=== PATIENT | female | born 1950 | race Caucasian/White ===

== ENCOUNTER 2019-12-02 08:48 | Emergency (ER) | payer MEDICARE, SELFPAY ==
--- NOTE | ~2019-12-02 | XR_ITS ---
XR wrist LT min 3V DATE: 12/02/2019 09:19 INDICATION: Fall. Pain and swelling. TECHNIQUE: 4 views COMPARISON: None FINDINGS: There is a virtually nondisplaced comminuted intra-articular fracture of the distal radius. Normal alignment at the radiocarpal joint. Osteopenia. 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 IMPRESSION: Virtually nondisplaced comminuted intra-articular fracture of the distal radius Reviewed, dictated and finalized at location A. IMPRESSION: Virtually nondisplaced comminuted intra-articular fracture of the d istal radius
[2019-12-02 08:51] VITALS: BP 145/72; PULSE 83; RESP 18; TEMP 36.2; O2SAT 97
--- NOTE | 2019-12-02 09:46 | ED.UPPEXIN ---
HPI - Extremity Injury (Upper) General Chief Complaint: Extremity Injury, Upper Stated Complaint: left wrist pain s/p fall Time Seen by Provider: 12/02/19 09:45 History of Present Illness HPI narrative: Patient presents via personal car, for left wrist pain. She was returning a neighbor's dog when she fell forward on the asphalt. She gauges her pain 6 out of 10, worse with movement. She has had no previous fractures. Her bone density is low and she takes the pill that you swallow once a week. She also takes vitamin D for low vitamin D levels. She has not been sick in the last couple weeks. Her car was packed she is going to see her mother for the weekend. She does not have an orthopedic doctor and will be referred to Dr. Tafoya. complaint: injury to: left Onset (ago): hour(s) Other Extremity Injury: Left: wrist Other injuries: none Handedness: right Place: home Severity: moderate Severity scale (1-10): 6 Relieving factors: cold therapy Exacerbating factors: movement of extremity Context: fall Associated symptoms: denies other symptoms Treatments prior to arrival: other Related Data Home Medications Medication Instructions Recorded Confirmed lisinopril 40 mg PO DAILY 12/02/19 Allergies Allergy/AdvReac Type Severity Reaction Status Date / Time No Known Allergies Allergy Verified 12/02/19 08:54 Review of Systems Review of Systems: Narrative: CONSTITUTIONAL: Denies fever, chills, or sweats. EYES: Denies visual changes, redness, or discharge. ENT: Denies rhinorrhea, congestion, sore throat, or otalgia. CARDIOVASCULAR: Denies chest pain, palpitations, or edema. RESPIRATORY: Denies cough or dyspnea. GASTROINTESTINAL: Denies abdominal pain, nausea, vomiting, or diarrhea. GENITOURINARY: Denies dysuria or hematuria. SKIN: Denies rash or itching. MUSCULOSKELETAL: Denies back pain, or myalgia. NEUROLOGIC: Denies headache, numbness, or weakness. PSYCHIATRIC: Denies anxiety or depression. All systems reviewed & are unremarkable except as noted in HPI and below PMFSH Surgical History Surgical History (Updated 12/02/19 @ 09:54 by Malgorzata Gonzalez MD) Central teeth extracted Social History Social History (Updated 12/02/19 @ 09:54 by Malgorzata Gonzalez MD) Smoking status: Never smoker Alcohol intake: never Substance use: never Exam Narrative: Exam Narrative: GENERAL: Well-appearing, well-nourished, and in no acute distress. HEAD: Normocephalic, atraumatic. EYES: PERRLA and EOMI. ENT: Nares clear, no rhinorrhea or epistaxis. Mucous membranes moist. NECK: Supple. CHEST: Clear to auscultation. No respiratory distress. HEART: Regular rate and rhythm. No murmur heard. Normal peripheral pulses. ABDOMEN: Soft, nontender, nondistended, normal active bowel sounds. EXTREMITIES: Swelling and tenderness to the left distal radius. Neurovascular intact. SKIN: Warm, dry, no rash. NEURO: No focal deficits. Alert and oriented x3. PSYCH: Normal mood and affect. Course Vital Signs Vital signs: Vital Signs Temperature 97.2 F L 12/02/19 08:51 Pulse Rate 83 12/02/19 08:51 Respiratory Rate 18 12/02/19 08:51 Blood Pressure 145/72 H 12/02/19 08:51 Pulse Oximetry 97 12/02/19 08:51 Temperature 97.2 F L 12/02/19 08:51 Pulse Rate 83 12/02/19 08:51 Respiratory Rate 18 12/02/19 08:51 Blood Pressure 145/72 H 12/02/19 08:51 Pulse Oximetry 97 12/02/19 08:51 Procedures Orthopedic Splinting/Casting Injury #1: Splinting/Casting Date: 12/02/19 Splinting/Casting Time: 09:55 Upper Extremity Injury Location: wrist Upper Extremity Immobilizer: sling/shoulder immobilizer and wrist splint Splint: customized in ED OCL: short arm Pre-Procedure Neuro Vascular Exam: normal Post-Procedure Neuro Vascular Exam: normal Discharge Plan Discharge Clinical Impression: Closed fracture of distal end of left radius Qualifiers: Encounter type: initial encounter F
== END 2019-12-02 10:25 | disposition home or self-care (01) ==
PROVIDERS: Emergency Provider Emergency Medicine; PCP Student in an Organized Health Care Education/Training Program
DX: S52.572A Other intraarticular fracture of lower end of left radius, initial encounter for closed fracture (principal); M81.0 Age-related osteoporosis without current pathological fracture; M85.822 Other specified disorders of bone density and structure, left upper arm
CPT/HCPCS: 29125; 73110; 99284; A4565; A9270

== ENCOUNTER 2020-02-22 12:30 | Outpatient (RCR) | payer MEDICARE, SELFPAY ==
--- NOTE | 2020-01-18 09:27 | OTOPEVAL ---
Occupational Therapy Evaluation and Plan of Treatment 01/18/2020 Thank you for referring Carlee Galaviz to [facility] [place]. Patient will benefit from skilled OT 2x/week for 5 weeks. Please review, sign, date and return this plan of care LEN. I agree with and certify that the following plan of care is medically necessary. Referring Physician Date Admitting Provider: Attending Provider: Jason Tafoya MD Referring Provider: *OT Outpatient Evaluation Start: 01/18/20 07:41 Freq: Status: Active Protocol: Document 01/18/20 08:05 KJL (Rec: 01/18/20 09:18 KJL [email or web address]) Therapy Assessment Status Assessment Status Assessment Status Evaluation Evaluation Information Problem Diagnosis Virtually nondisplaced communuted intra-articular fx of the distal radius Onset 12/02/2019 Additional Evaluation Detail Pt reports having a fall and stretching L arm out to catch oneself during fall causing a distal radius wrist fracture. 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 Pt reports wrist fracture has caused decreased motion and strength in wrist with occational achey pain with prolonged use such as driving long distances. 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
--- NOTE | 2020-02-22 13:09 | OTOPEVAL ---
OCCUPATIONAL THERAPY DISCHARGE NOTE 02/22/2020 Carlee is being discharged from OT and is independent with her HEP to continue to work on flexibility and strength. Thank you for referring Carlee Galaviz to [facility] [place]. Please review, sign, date and return this D/C Note LEN. I agree with and certify that the following plan of care is medically necessary. Referring Physician Date Referring Provider: Jason Tafoya MD *OT Outpatient Re-Evaluation Evaluation Information Problem Diagnosis left distal radius fracture Onset 12/02/2019 Additional Evaluation Detail Carlee has been participating in outpatient OT since 2019. OT has been focusing on reducing wrist stiffness and improving strength to facilitate optimal functional use of her left hand. Subjective Information Patient reports improved Query Text:As Reported By Patient/ functional use with the left Family UE to carry items, open jars, bear weight, and is back to normal with driving with B hands. She reports feeling like her strength is getting better, but she isn't ready to try to mow the grass yet. Pain Assessment Timing of Pain Assessment Timing of Pain Assessment Assessment Pain Scale Pain Scale Used Numeric (1 - 10) Self Report Pain Assessment Left Wrist(s) Reported Pain Level 0 Lowest Pain Intensity 0 Greatest Pain Intensity 2 Pain Score Pain Score 0: Self Report Upper Extremity Range of Motion Elbow/Forearm Range of Motion Left Forearm Supination - Active 85 Forearm Pronation - Active 85 Elbow/Forearm Range of Motion Comments Supination improved from 40* Pronation improved from 75* Wrist Range of Motion Left Wrist Flexion - Active 50 Wrist Extension - Active 50 Wrist Radial Deviation - Active 25 Wrist Ulnar Deviation - Active 30 Wrist Range of Motion Comments Flexion improved from 20* Extension improved from 30* RD improved from 10* UD improved from 10* Extension is symmetrical to the right wrist. Flexion is 20* less than the right wrist. Finger Range of Motion Left Reason Not Measured WNL/Left Thumb Range of Motion Left Reason Not Measured WNL/Left Upper Extremity Muscle
--- NOTE | 2020-08-20 12:48 | PCOTNOTE ---
Forgot to charge paraffin bath procedure on 01/24/2020 and 01/25/2020, billing office is notified
== END 2020-02-26 10:34 | disposition home or self-care (01) ==
LOC: ANHOT 12:30
PROVIDERS: Visit Provider Orthopaedic Surgery
DX: S52.572D Other intraarticular fracture of lower end of left radius, subsequent encounter for closed fracture with routine healing (principal); S49.1 Physeal fracture of lower end of humerus
CPT/HCPCS: 97018; 97110; 97140; 97165

== ENCOUNTER 2020-06-18 10:32 | Outpatient (NON) | payer MEDICARE, SELFPAY ==
[2020-06-19 21:14] LABS: SARS-CoV-2 RNA PCR Positive
== END 2020-06-18 10:33 ==
PROVIDERS: Visit Provider Registered Nurse
DX: U07.1 COVID-19 (principal); R53.83 Other fatigue; R50.9 Fever, unspecified; R19.7 Diarrhea, unspecified; R51.9 Headache, unspecified
CPT/HCPCS: 87635; C9803; U0003

== ENCOUNTER → 2020-10-07 11:02 | Outpatient (CLI) | payer MEDICARE, SELFPAY ==
--- NOTE | ~2020-10-07 | DEXA_ITS ---
Bone Density Report Name: Carlee Galaviz Age: 70 Sex: Female Ethnicity: White Date of : 1950 Indication: postmenopausal osteoporosis; monitoring treatment; Referring Provider: Lety, Grant Study: Bone densitometry was performed. Exam Date: October 07, 2020 Accession number: [id number] Bone Density: Region BMD T-score Z-score Classification AP Spine (L1-L4) 0.836 -1.9 0.1 Osteopenia Femoral Neck (Left) 0.565 -2.6 -0.9 Osteoporosis Total Hip (Left) 0.688 -2.1 -0.7 Osteopenia Femoral Neck (Right) 0.546 -2.7 -1.1 Osteoporosis Total Hip (Right) 0.684 -2.1 -0.7 Osteopenia Total Hip Mean 0.686 -2.1 -0.7 Osteopenia World Health Organization criteria for BMD impression classify patients as: Normal (T-score at or above -1.0), Osteopenia (T-score between -1.0 and -2.5), or Osteoporosis (T-score at or below -2.5). 10-year Fracture Risk: FRAX not reported because: Some T-score for Spine Total or Hip Total or Femoral Neck at or below -2.5 Treated for osteoporosis Previous Exams: Region Exam Age BMD T-score BMD Change BMD Change Date g/cm2 vs Baseline vs Previous AP Spine(L1-L4) 10/07/2020 70 0.836 -1.9 0.059* -0.016 07/08/2018 67 0.852 -1.8 0.075* 0.015 05/04/2016 65 0.837 -1.9 0.060* 0.010 02/16/2011 60 0.828 -2.0 0.051* -0.007 01/22/2010 59 0.835 -1.9 0.058* -0.008 01/18/2009 58 0.843 -1.9 0.066* 0.066* 12/26/2007 57 0.777 -2.5 Total Hip(Left) 10/07/2020 70 0.688 -2.1 0.036* 0.002 07/08/2018 67 0.686 -2.1 0.034* 0.004 05/04/2016 65 0.683 -2.1 0.030* 0.015 02/16/2011 60 0.668 -2.2 0.016 -0.072* 01/22/2010 59 0.740 -1.7 0.088* 0.096* 01/18/2009 58 0.644 -2.4 -0.009 -0.009 12/26/2007 57 0.652 -2.4 Total Hip(Right) 10/07/2020 70 0.684 -2.1 0.087* 0.050* 07/08/2018 67 0.634 -2.5 0.037* 0.006 05/04/2016 65 0.627 -2.6 0.031* -0.041* 02/16/2011 60 0.668 -2.2 0.071* 0.023 01/22/2010 59 0.645 -2.4 0.049* 0.032* 01/18/2009 58 0.613 -2.7 0.017 0.017 12/26/2007 57 0.596 -2.8 *Denotes significance at 95% confidence level, LSC for AP Spine = 0.022 g/cm2, LSC for Total Hip = 0.027 g/cm2 Clinical Information Provided by Patient:
== END ==
PROVIDERS: PCP Student in an Organized Health Care Education/Training Program; Visit Provider Student in an Organized Health Care Education/Training Program
DX: M81.0 Age-related osteoporosis without current pathological fracture (principal); M85.88 Other specified disorders of bone density and structure, other site; M85.852 Other specified disorders of bone density and structure, left thigh; M85.851 Other specified disorders of bone density and structure, right thigh
CPT/HCPCS: 77080

== ENCOUNTER → 2020-10-31 10:51 | Outpatient (CLI) | payer MEDICARE, SELFPAY ==
--- NOTE | ~2020-10-31 | MM_ITS ---
EXAMINATION: MM screening [facility] BI w tello HISTORY: Screening mammogram TECHNIQUE: Craniocaudal and mediolateral oblique 3-D tomosynthesis images were obtained and synthetic 2-D images were generated. CAD analysis was submitted and interpreted. COMPARISON: No prior mammogram is available for comparison at this institution. BREAST PARENCHYMAL COMPOSITION: There are scattered areas of fibroglandular density. FINDINGS: There is no evidence of suspicious mass, calcification, or architectural distortion to sugg est malignancy in either breast. There has been no suspicious interval change. IMPRESSION: 1. No mammographic evidence of malignancy. 2. Recommend routine screening mammography in one year. BI-RADS Category 1: Negative Reviewed, dictated and finalized at location A.
== END ==
PROVIDERS: PCP Student in an Organized Health Care Education/Training Program; Visit Provider Student in an Organized Health Care Education/Training Program
DX: Z12.31 Encounter for screening mammogram for malignant neoplasm of breast (principal)
CPT/HCPCS: 77063; 77067

== ENCOUNTER → 2021-12-13 08:14 | Outpatient (CLI) | payer MEDICARE, SELFPAY ==
--- NOTE | ~2021-12-13 | MM_ITS ---
EXAMINATION: MM screening [facility] BI w tello HISTORY: Screening mammogram TECHNIQUE: Craniocaudal and mediolateral oblique 3-D tomosynthesis images were obtained and synthetic 2-D images were generated. CAD analysis was submitted and interpreted. COMPARISON: bilateral screening mammogram examination BREAST PARENCHYMAL COMPOSITION: There are scattered areas of fibroglandular density. FINDINGS: There is no evidence of suspicious mass, calcification, or architectural distortion to sugg est malignancy in either breast. There has been no suspicious interval change. IMPRESSION: 1. No mammographic evidence of malignancy. 2. Recommend routine screening mammography in one year. BI-RADS Category 1: Negative Reviewed, dictated and finalized at location A.
== END ==
PROVIDERS: PCP Student in an Organized Health Care Education/Training Program; Visit Provider Student in an Organized Health Care Education/Training Program
DX: Z12.31 Encounter for screening mammogram for malignant neoplasm of breast (principal)
CPT/HCPCS: 77063; 77067

== ENCOUNTER → 2022-10-28 13:03 | Outpatient (CLI) | payer MEDICARE, SELFPAY ==
--- NOTE | ~2022-10-28 | DEXA_ITS ---
Bone Density Report Name: SUGAR SNYDER Age: 72 Sex: Female Ethnicity: White Date of : 1950 Indication: osteopenia;postmenopausal; monitoring treatment; prior fracture; Referring Provider: Lety, Grant Study: Bone densitometry was performed. Exam Date: October 28, 2022 Accession number: [id number] Bone Density: Region BMD T-score Z-score Classification AP Spine (L1-L4) 0.879 -1.5 0.6 Osteopenia Femoral Neck (Left) 0.573 -2.5 -0.7 Osteoporosis Total Hip (Left) 0.677 -2.2 -0.7 Osteopenia Femoral Neck (Right) 0.590 -2.3 -0.5 Osteopenia Total Hip (Right) 0.665 -2.3 -0.8 Osteopenia Total Hip Mean 0.671 -2.3 -0.8 Osteopenia World Health Organization criteria for BMD impression classify patients as: Normal (T-score at or above -1.0), Osteopenia (T-score between -1.0 and -2.5), or Osteoporosis (T-score at or below -2.5). 10-year Fracture Risk: FRAX not reported because: Some T-score for Spine Total or Hip Total or Femoral Neck at or below -2.5 Treated for osteoporosis Previous Exams: Region Exam Age BMD T-score BMD Change BMD Change Date g/cm2 vs Baseline vs Previous AP Spine(L1-L4) 10/28/2022 72 0.879 -1.5 0.102* 0.043* 10/07/2020 70 0.836 -1.9 0.059* -0.016 07/08/2018 67 0.852 -1.8 0.075* 0.015 05/04/2016 65 0.837 -1.9 0.060* 0.010 02/16/2011 60 0.828 -2.0 0.051* -0.007 01/22/2010 59 0.835 -1.9 0.058* -0.008 01/18/2009 58 0.843 -1.9 0.066* 0.066* 12/26/2007 57 0.777 -2.5 Total Hip(Left) 10/28/2022 72 0.677 -2.2 0.025 -0.011 10/07/2020 70 0.688 -2.1 0.036* 0.002 07/08/2018 67 0.686 -2.1 0.034* 0.004 05/04/2016 65 0.683 -2.1 0.030* 0.015 02/16/2011 60 0.668 -2.2 0.016 -0.072* 01/22/2010 59 0.740 -1.7 0.088* 0.096* 01/18/2009 58 0.644 -2.4 -0.009 -0.009 12/26/2007 57 0.652 -2.4 Total Hip(Right) 10/28/2022 72 0.665 -2.3 0.069* -0.018 10/07/2020 70 0.684 -2.1 0.087* 0.050* 07/08/2018 67 0.634 -2.5 0.037* 0.006 05/04/2016 65 0.627 -2.6 0.031* -0.041* 02/16/2011 60 0.668 -2.2 0.071* 0.023 01/22/2010 59 0.645 -2.4 0.049* 0.032* 01/18/2009 58 0.613 -2.7 0.017 0.017 12/26/2007 57 0.596 -2.8
== END ==
PROVIDERS: PCP Student in an Organized Health Care Education/Training Program; Visit Provider Student in an Organized Health Care Education/Training Program
DX: M81.0 Age-related osteoporosis without current pathological fracture (principal); M85.89 Other specified disorders of bone density and structure, multiple sites
CPT/HCPCS: 77080

== ENCOUNTER → 2023-01-07 13:12 | Outpatient (CLI) | payer MEDICARE, SELFPAY ==
--- NOTE | ~2023-01-07 | MM_ITS ---
EXAMINATION: MM screening [facility] BI w tello HISTORY: Screening mammogram TECHNIQUE: Craniocaudal and mediolateral oblique 3-D tomosynthesis images were obtained and synthetic 2-D images were generated. CAD analysis was submitted and interpreted. COMPARISON: 12/13/2021, 10/31/2020 bilateral screening mammogram examinations BREAST PARENCHYMAL COMPOSITION: There are scattered areas of fibroglandular density. FINDINGS: There is no evidence of suspicious mass, calcification, or architectural distortion to sugg est malignancy in either breast. There has been no suspicious interval change. IMPRESSION: 1. No mammographic evidence of malignancy. 2. Recommend routine screening mammography in one year. BI-RADS Category 1: Negative Reviewed, dictated and finalized at location A.
== END ==
PROVIDERS: PCP Student in an Organized Health Care Education/Training Program; Visit Provider Student in an Organized Health Care Education/Training Program
DX: Z12.31 Encounter for screening mammogram for malignant neoplasm of breast (principal)
CPT/HCPCS: 77063; 77067

== ENCOUNTER 2024-02-22 12:37 | Outpatient (CLI) | payer MEDICARE, SELFPAY ==
--- NOTE | ~2024-02-22 | MM_ITS ---
EXAMINATION: MM screening [facility] BI w tello HISTORY: Screening TECHNIQUE: Craniocaudal and mediolateral oblique 3-D tomosynthesis images were obtained and synthetic 2-D images were generated. CAD analysis was submitted and interpreted. COMPARISON: Comparison to multiple prior studies sequentially, with oldest reviewed study dated 02/2021. BREAST PARENCHYMAL COMPOSITION: Not dense: There are scattered areas of fibroglandular density. FINDINGS: There is no evidence of suspicious mass, calcification, or architectural distortion to sugg est malignancy in either breast. There has been no suspicious interval change. IMPRESSION: 1. No mammographic evidence of malignancy. 2. Recommend routine screening mammography in one year. BI-RADS Category 1: Negative Reviewed, dictated and finalized at location B.
== END 2024-02-22 12:38 ==
PROVIDERS: PCP Student in an Organized Health Care Education/Training Program; Visit Provider Student in an Organized Health Care Education/Training Program
DX: Z12.31 Encounter for screening mammogram for malignant neoplasm of breast (principal)
CPT/HCPCS: 77063; 77067

== ENCOUNTER 2024-12-21 12:01 | Outpatient (CLI) | payer MEDICARE, SELFPAY ==
--- NOTE | ~2024-12-21 | DEXA_ITS ---
Bone Density Report Name: SUGAR SNYDER Age: 74 Sex: Female Ethnicity: White Date of : 1950 Indication: osteopenia; height loss; Referring Provider: Lety, Grant Study: Bone densitometry was performed. Exam Date: December 21, 2024 Accession number: [id number] Bone Density: Region BMD T-score Z-score Classification AP Spine(L1-L4) 0.874 -1.6 0.7 Osteopenia Femoral Neck (Left) 0.611 -2.1 -0.2 Osteopenia Total Hip (Left) 0.675 -2.2 -0.6 Osteopenia Femoral Neck (Right) 0.556 -2.6 -0.7 Osteoporosis Total Hip (Right) 0.689 -2.1 -0.4 Osteopenia Total Hip Mean 0.682 -2.2 -0.5 Osteopenia World Health Organization criteria for BMD impression classify patients as: Normal (T-score at or above -1.0), Osteopenia (T-score between -1.0 and -2.5), or Osteoporosis (T-score at or below -2.5). 10-year Fracture Risk: FRAX not reported because: Some T-score for Spine Total or Hip Total or Femoral Neck at or below -2.5 Previous Exams: -- Region Exam Age BMD T-score BMD Change BMD Change Date g/cm2 vs Baseline vs Previous -- AP Spine (L1-L4) 12/21/2024 74 0.874 -1.6 12.5%* -0.6% 10/28/2022 72 0.879 -1.5 13.1%* 5.2%* 10/07/2020 70 0.836 -1.9 7.5%* -1.9% 07/08/2018 67 0.852 -1.8 9.7%* 1.7% 05/04/2016 65 0.837 -1.9 7.8%* 1.2% 02/16/2011 60 0.828 -2.0 6.5%* -0.9% 01/22/2010 59 0.835 -1.9 7.4%* -1.0% 01/18/2009 58 0.843 -1.9 8.5%* 8.5%* 12/26/2007 57 0.777 -2.5 Total Hip(Left) 12/21/2024 74 0.675 -2.2 3.5% -0.3% 10/28/2022 72 0.677 -2.2 3.8% -1.7% 10/07/2020 70 0.688 -2.1 5.5%* 0.3% 07/08/2018 67 0.686 -2.1 5.2%* 0.5% 05/04/2016 65 0.683 -2.1 4.7%* 2.2% 02/16/2011 60 0.668 -2.2 2.4% -9.7%* 01/22/2010 59 0.740 -1.7 13.5%* 15.0%* 01/18/2009 58 0.644 -2.4 -1.3% -1.3% 12/26/2007 57 0.652 -2.4 Total Hip(Right) 12/21/2024 74 0.689 -2.1 15.5%* 3.5% 10/28/2022 72 0.665 -2.3 11.6%* -2.6% 10/07/2020 70 0.684 -2.1 14.6%* 7.9%* 07/08/2018 67 0.634 -2.5 6.2%* 1.0% 05/04/2016 65 0.627 -2.6 5.1%* -6.1%* 02/16/2011 60 0.668 -2.2 12.0%* 3.5% 01/22/2010 59 0.645 -2.4 8.2%* 5.3%* 01/18/2009 58 0.613 -2.7 2.8% 2.8% 12/26/2007 57 0.596 -2.8 -- *Denotes significance at 95% confidence level, LSC for AP Spine = 0.022 g/cm2, LSC for Total Hip = 0.027 g/cm2 Clinical Information Provided by Patient: Has used the following medications: Fosamax (i.e. alendronate), Vitamin D, Calcium Patient maximum height was 61 Menopause Age: 56 No regular weight bearing exercise Does not regularly consume dairy products Drinks caffeinated beverages Onset of menses at age 15 Number of children 3 Impression: The patient has osteoporosis, based on the Right Femoral Neck T-score. No significant bone loss was observed. Discussion: INCREASED RISK OF FRACTURE. BONE DENSITY IS UNDESIRABLY LOW AT ONE OR MORE SKELETAL SITES, CONSISTENT WITH POSTMENOPAUSAL OSTEOPOROSIS. This patient's lowest T-score meets the World Health Organization's (WHO) criteria for osteoporosis at one or more sites (T-score -2.5 or below). In untreated patients, the risk of osteoporotic fracture increases approximately two-fold for each 1.0 SD decrease in T-score. Low bone density is not the only risk factor for fracture; also consider factors such as patient's age, frailty or poor health, risk of falling, risk of injury, previous osteoporotic fracture, family history of osteoporosis, cigarette smoking, low body weight, etc. Not everyone with low bone mineral density has osteoporosis; osteomalacia and other metabolic bone disorders should also be considered. Patients who have osteoporosis should be evaluated for specific diseases and conditions (secondary causes) that may cause or contribute to bone loss. The [place] [employer]ocrin[employer] (AACE) and National Osteoporosis Foundation (NOF) recommend pharmacologic intervention for all postmenopausal women whose T-score is in this range. The patient should follow a healthful lifestyle (good nutrition with adequate calcium and vitamin D, and appropriate weight-bearing exercise). Follow-Up: Consider a repeat BMD and Vertebral Fracture Assessment (VFA) exam in 2 years or sooner if medically necessary, to reassess this patient's status. Reported by: BRIAN on 12/21/2024 12:19:00 PM. Reviewed, dictated and finalized at location A.
== END 2024-12-21 12:02 | disposition home or self-care (01) ==
LOC: MICIMG 12:02
PROVIDERS: PCP Student in an Organized Health Care Education/Training Program; Visit Provider Student in an Organized Health Care Education/Training Program
DX: M81.0 Age-related osteoporosis without current pathological fracture (principal); M85.89 Other specified disorders of bone density and structure, multiple sites
CPT/HCPCS: 77080

== ENCOUNTER 2025-05-18 13:48 | Outpatient (CLI) | payer MEDICARE, SELFPAY ==
--- NOTE | ~2025-05-18 | MM_ITS ---
EXAMINATION: MM screening [facility] BI w tello HISTORY: Screening TECHNIQUE: Craniocaudal and mediolateral oblique 3-D tomosynthesis images were obtained and synthetic 2-D images were generated. CAD analysis was submitted and interpreted. COMPARISON: Comparison to multiple prior studies sequentially, with oldest reviewed study dated 10/31/2020. BREAST PARENCHYMAL COMPOSITION: Not dense: There are scattered areas of fibroglandular density. FINDINGS: There is no evidence of suspicious mass, calcification, or architectural distortion to suggest malignancy in either breast. There has been no suspicious interval change. IMPRESSION: 1. No mammographic evidence of malignancy. 2. Recommend routine screening mammography in one year. BI-RADS Category 1: Negative Reviewed, dictated and finalized at location O.
== END 2025-05-18 13:49 | disposition home or self-care (01) ==
LOC: MICIMG 13:49
PROVIDERS: PCP Student in an Organized Health Care Education/Training Program; Visit Provider Student in an Organized Health Care Education/Training Program
DX: Z12.31 Encounter for screening mammogram for malignant neoplasm of breast (principal)
CPT/HCPCS: 77063; 77067